=== PATIENT | female | born 1985 | race African-American/Black ===

== ENCOUNTER 2021-02-20 08:36 | Emergency (ER) | payer OTHER | END 2021-02-20 09:17 | disposition home or self-care (01) | LOC: CSHERS 08:36 | DX: L72.3 Sebaceous cyst (principal) | CPT/HCPCS: 99282 ==

== ENCOUNTER 2025-10-17 10:20 | Outpatient (CLI) | payer BC | END 2025-10-17 10:21 | disposition home or self-care (01) | LOC: CSHDTY/OP 10:20 | PROVIDERS: ATTEND Nurse Practitioner Family | DX: Z71.3 Dietary counseling and surveillance (principal) | CPT/HCPCS: 97802 ==